=== PATIENT | female | born 1990 | race Two or more races ===

== ENCOUNTER 2016-09-16 09:24 | Emergency (ER) | payer SELFPAY ==
[2016-09-16 09:31] VITALS: TEMP 98.9; BMI 17.4
--- NOTE | 2016-09-16 09:41 | EDPRACDOC ---
- General Information Chief Complaint: Abdominal Pain Stated Complaint: ABD PAIN (13 WKS PREG) Time Seen by Provider: 09/16/16 09:38 Mode Of Arrival: Car Home Medications: Home Medications No Home Medications 09/16/16 Allergies/Adverse Reactions: Allergies Allergy/AdvReac Type Severity Reaction Status Date / Time penicillin G Allergy Difficulty Verified 09/16/16 09:31 Breathing - History of Present Illness Onset: 1 MONTH HPI: JUNE 06, LAST MENSES. BAD ABD CRAMPS SINCE BEGINNING OF JULY. PT THINKS 13 WEEKS PREG. HAS HAD KIDNEY STONES IN PAST. SOME VAGINAL SPOTTING LAST WAS BEGINNING OF JULY. ABD CRAMPS 04/05. TOOK 2 TYLENOL THIS AM. Last Menstrual Period: 06/06/2017 : Yes ED Past Medical History - Patient Medical History GI/ History: Reports: Kidney Stones Systemic History: Denies: Cancer - Social Medical History Smoking Status: Heavy tobacco smoker (5 or more cigarettes/day or daily pipe/ cigar) - Physical Exam Constitutional: Alert (Awake), No apparent distress Oriented to: Time, Person, Place Last recorded Vital Signs: Last Vital Signs Temp 98.9 F 09/16/16 09:27 Pulse 64 09/16/16 13:48 Resp 18 09/16/16 13:48 BP 102/61 09/16/16 13:48 Pulse Ox 100 09/16/16 13:48 Oxygen Pulse Oxygen Saturation 100 O2 Device Room Air Oxygen Flow Rate Fraction of Inspired Oxygen ( FIO2) - HEENT Head: Normal ( normocephalic) Eye Exam: Normal (PERRL, EOMI, Sclera white) Oropharynx: Normal (Pharynx:Moist without exudate,Gums-no swelling) Nose: No Symptoms Reported (septum midline) Neck: Normal (FROM, trachea at midline) - Respiratory/Cardiovascular Respiratory: Normal - CTA (BBS clear to auscultation without adventitious sounds ) Cardiovascular: Normal (RRR without murmur, gallop or rub) - GI Auscultation: Normal (NABS) Palpation: Other (GRAVID UTERUS) Tenderness: Mild (LOWER ABD TTP.). negative: Guarding, Rebound, Rigidity Preston's Sign: Negative - Musculoskeletal Back: Normal (Non-Tender) Extremities: Normal (Normal tone, Pulses 2+ No cyanosis or edema, FROM) - Integumentary Skin: Normal, Warm, Dry Lymphatics: Normal (no adenopathy) - Neurologic Memory Impaired: Normal Motor Function: Normal (Normal tone, Pulses 2+ No cyanosis or edema, FROM) Cranial Nerve: Normal (CN II-X11 intact sensation, strength 5/5) Cerebellar: Normal Mood Description: Normal Perception: Normal - Results 09/16/16 09:53 09/16/16 09:53 WBC 10.3 xk/uL (3.8-10.8) 09/16/16 09:53 RBC 4.65 xM/uL (4.20-5.40) 09/16/16 09:53 Hgb 13.7 g/dL (12.0-16.0) 09/16/16 09:53 Hct 41.4 % (36-47) 09/16/16 09:53 MCV 89 fL (81-99) 09/16/16 09:53 MCH 29.4 pg (27-32) 09/16/16 09:53 MCHC 33.0 g/dl (33-36) 09/16/16 09:53 RDW 13.3 % (11.5-14.5) 09/16/16 09:53 Plt Count 328 xk/uL (130-400) 09/16/16 09:53 MPV 7.8 fL (7.4-10.4) 09/16/16 09:53 Neut % (Auto) 76.3 % (45-76) H 09/16/16 09:53 Lymph % (Auto) 17.6 % (17-44) 09/16/16 09:53 [place] % (Auto) 5.2 % (3-10) 09/16/16 09:53 Eos % (Auto) 0.3 % (0-5) 09/16/16 09:53 Baso % (Auto) 0.6 % (0-2) 09/16/16 09:53 Absolute Neuts (auto) 7.83 xk/uL (1.7-8.2) 09/16/16 09:53 Absolute Lymphs (auto) 1.75 xk/uL (0.65-4.75) 09/16/16 09:53 Sodium 137 mEq/L (137-146) 09/16/16 09:53 Potassium 3.7 mEq/L (3.5-5.1) 09/16/16 09:53 Chloride 106 mEq/L (98-107) 09/16/16 09:53 Carbon Dioxide 22 mMOL/L (22-33) 09/16/16 09:53 Anion Gap 13 mEq/L (8-16) 09/16/16 09:53 BUN 8 MG/DL (7-17) 09/16/16 09:53 Creatinine 0.60 MG/DL (0.52-1.04) 09/16/16 09:53 Estimated GFR (MDRD) > 60 mL/min (>=60) 09/16/16 09:53 Glucose 74 MG/DL (70-99) 09/16/16 09:53 Calculated Osmolality 261 MOs/Kg (270-290) L 09/16/16 09:53 Calcium 9.1 MG/DL (8.4-10.2) 09/16/16 09:53 Corrected Calcium 9.2 MG/DL (8.4-10.2) 09/16/16 09:53 Total Bilirubin 0.8 MG/DL (0.2-1.3) 09/16/16 09:53 AST 22 IU/L (14-36) 09/16/16 09:53 ALT 25 IU/L (9-52) 09/16/16 09:53 Alkaline Phosphatase 40 IU/L (38-126) 09/16/16 09:53 Total Protein 6.8 G/DL (6.3-8.2) 09/16/16 09:53 Albumin 3.9 G/DL (3.5-5.0) 09/16/16 09:53 Urine Color Yellow 09/16/16 13:45 Urine Clarity Cldy 09/16/16 13:45 Urine pH 7.0 (5.0-8.0) 09/16/16 13:45 Ur Specific [place] 1.010 (1.003-1.035) 09/16/16 13:45 Urine Protein Neg (NEG/TRACE) 09/16/16 13:45 Urine Glucose (UA) Neg (NEGATIVE) 09/16/16 13:45 Urine Ketones 1+ (NEGATIVE) H 09/16/16 13:45 Urine Occult Blood Neg (NEG/TRACE) 09/16/16 13:45 Urine Nitrite Neg (NEGATIVE) 09/16/16 13:45 Urine Bilirubin Neg (NEGATIVE) 09/16/16 13:45 Urine Urobilinogen 0.2 MG/DL (0-1) 09/16/16 13:45 Ur Leukocyte Esterase Neg (NEGATIVE) 09/16/16 13:45 Urine WBC 0-2 (0-5) 09/16/16 13:45 Ur Epithelial Cells 2+ 09/16/16 13:45 Amorphous Sediment 2+ 09/16/16 13:45 Urine Bacteria Few (NEG/FEW) 09/16/16 13:45 Urine Mucus Occ (NEG/OCC) 09/16/16 13:45 Lab Results 09/16/16 09/16/16 09/16/16 13:45 09:53 09:53 WBC 10.3 RBC 4.65 Hgb 13.7 Hct 41.4 MCV 89 MCH 29.4 MCHC 33.0 RDW 13.3 Plt Count 328 MPV 7.8 Neut % (Auto) 76.3 H Lymph % (Auto) 17.6 [place] % (Auto) 5.2 Eos % (Auto) 0.3 Baso % (Auto) 0.6 Absolute Neuts (auto) 7.83 Absolute Lymphs (auto) 1.75 Sodium 137 Potassium 3.7 Chloride 106 Carbon Dioxide 22 Anion Gap 13 BUN 8 Creatinine 0.60 Estimated GFR (MDRD) > 60 Glucose 74 Calculated Osmolality 261 L Calcium 9.1 Corrected Calcium 9.2 Total Bilirubin 0.8 AST 22 ALT 25 Alkaline Phosphatase 40 Total Protein 6.8 Albumin 3.9 Urine Color Yellow Urine Clarity Cldy Urine pH 7.0 Ur Specific [place] 1.010 Urine Protein Neg Urine Glucose (UA) Neg Urine Ketones 1+ H Urine Occult Blood Neg Urine Nitrite Neg Urine Bilirubin Neg Urine Urobilinogen 0.2 Ur Leukocyte Esterase Neg Urine WBC 0-2 Ur Epithelial Cells 2+ Amorphous Sediment 2+ Urine Bacteria Few Urine Mucus Occ Decision Time to Discharge: 14:59 - Departure Yes I personally saw and evaluated the patient. Disposition: Home Condition: Stable Final Diagnosis: Abdominal pain during Qualifiers: Trimester: second trimester Qualified Code(s): O26.892 - Other specified related conditions, second trimester Placenta previa Qualifiers: Trimester: second trimester Qualified Code(s): O44.02 - Complete placenta previa NOS or without hemorrhage, second trimester Instructions: Non-pharmacological Pain Management Therapies for Adults (GEN), Acute Abdominal Pain (ED), Abdominal Pain (ED) Education/Counseling Given To: Patient Education/Counseling Given Regarding: Diagnosis Referrals: None,No Provider [Primary Care Provider] - One Week
[2016-09-16 09:59] LABS: AUTOMATED BASOPHIL 0.6 % (0-2); AUTOMATED EOSINOPHIL 0.3 % (0-5); AUTOMATED LYMPH 17.6 % (17-44); AUTOMATED MONOCYTE 5.2 % (3-10); AUTOMATED NEUTROPHIL 76.3 % (45-76); MPV 7.8 fL (7.4-10.4)
[2016-09-16 10:09] LABS: BLOOD UREA NITROGEN 8 MG/DL (7-17); CALC CORRECTED 9.2 MG/DL (8.4-10.2); CALCIUM 9.1 MG/DL (8.4-10.2); CALCULATED OSMOLALITY 261 MOs/Kg (270-290); CHLORIDE 106 mEq/L (98-107); GLUCOSE 74 MG/DL (70-99); SODIUM LEVEL 137 mEq/L (137-146); TOTAL PROTEIN 6.8 G/DL (6.3-8.2)
--- NOTE | 2016-09-16 12:38 | DIRPT ---
CLINICAL DATA: Lower abdominal pain and right flank pain in a patient, 14 weeks and 4 days by last menstrual period dating. EXAM: OBSTETRICAL ULTRASOUND >14 WKS AND TRANSVAGINAL OB US FINDINGS: Number of Fetuses: 1 Heart Rate: 157 bpm Movement: Present. Presentation: Breech. Previa: Complete. Placental Location: Posterior. Amniotic Fluid (Subjective): Normal. Amniotic Fluid (Objective): Vertical pocket cm BIOMETRY BPD: 2.6cm 14w 3d US EDC: 14 week 3 days Estimated Weight: g %ile Maternal Findings: Cervix: Closed, measuring 4.5 cm in length. IMPRESSION: Single live intrauterine corresponding to 14 weeks 3 days. Posterior placenta with complete placenta previa. Electronically Signed By: Brisa Bowman M.D. On: 09/16/2016 12:36
[2016-09-16 14:06] LABS: AMORPHOUS 2+; WBC/URINE 0-2 (0-5)
[2016-09-16 14:08] LABS: LEUKOCYTES/URINE NEG (NEGATIVE); NITRITE/URINE NEG (NEGATIVE); URINE OCCULT BLOOD NEG (NEG/TRACE)
[2016-09-16 15:03] VITALS: BP 103/64; PULSE 66
== END 2016-09-16 15:08 | disposition home or self-care (01) ==
LOC: ED 09:24
DX: O44.02 Complete placenta previa NOS or without hemorrhage, second trimester (principal); O26.892 Other specified pregnancy related conditions, second trimester; O99.330 Smoking (tobacco) complicating pregnancy, unspecified trimester; Z3A.00 Weeks of gestation of pregnancy not specified
CPT/HCPCS: 36415; 76805; 76817; 80053; 81001; 85025; 99284